=== PATIENT | female | born 1980 | race Caucasian/White ===

== ENCOUNTER 2017-02-03 00:08 | Emergency (ER) | payer MEDICAID, OTHER ==
[2017-02-03 00:08] VITALS: BMI 46.5
[2017-02-03 00:14] VITALS: BP 134/86; PULSE 85; RESP 18; TEMP 97.9; O2SAT 100
--- NOTE | 2017-02-03 01:36 | C.PDOC ---
History Of Present Illness Patient is a 36 year old female who presented to the ER with a complaint of right foot/ankle pain. Patient states she slipped on ice and twisted her ankle. Patient notes that she was able to walk after the injury, go to work, and complete her shift before visiting the ER. Patient took an Advil hours prior to arrival. Denies any other trauma, injury, headache, or dizziness. Time Seen by Provider: 02/03/17 00:33 Chief Complaint (Nursing): Lower Extremity Problem/Injury History Per: Patient History/Exam Limitations: no limitations Onset/Duration Of Symptoms: Hrs Current Symptoms Are (Timing): Still Present Additional History Per: Patient - Ankle/Foot Description Of Injury: Twisted (Right ankle/foot) Past Medical History Reviewed: Historical Data, Nursing Documentation, Vital Signs Vital Signs: Last Vital Signs Temp 97.9 F 02/03/17 00:10 Pulse 85 02/03/17 00:10 Resp 18 02/03/17 00:10 BP 134/86 02/03/17 00:10 Pulse Ox 100 02/03/17 04:11 - Medical History PMH: Asthma, Bronchitis (chronic) Family History: States: Unknown Family Hx - Social History Hx Alcohol Use: No Hx Substance Use: No - Immunization History Hx Tetanus Toxoid Vaccination: No Hx Influenza Vaccination: Yes Hx Pneumococcal Vaccination: No Review Of Systems Musculoskeletal: Positive for: Foot Pain (Right ankle/foot) Neurological: Negative for: Weakness, Numbness Physical Exam - Physical Exam Appears: Well, Non-toxic Skin: Normal Color, Warm, Dry Head: Atraumatic, Normacephalic Eye(s): bilateral: Normal Inspection Oral Mucosa: Moist Neck: Normal, Normal ROM Cardiovascular: Rhythm Regular Respiratory: Normal Breath Sounds, No Rales, No Rhonchi, No Wheezing Gastrointestinal/Abdominal: Soft, No Tenderness, No Distention, No Guarding, No Rebound Extremity: Tenderness (midfoot plantar to aspect of foot) Neurological/Psych: Oriented x3, Normal Speech, Normal Cognition Gait: Steady ED Course And Treatment O2 Sat by Pulse Oximetry: 100 - Other Rad Right ankle x-ray X-Ray: Interpreted by Me, Viewed By Me Interpretation: No acute abnormalities Right foot x-ray X-Ray: Interpreted by Me, Viewed By Me Interpretation: No acute abnormalities. Progress Note: Ibuprofen was administered. Right ankle x-ray and right foot x- ray ordered. Disposition Counseled Patient/Family Regarding: Diagnosis, Need For Followup, Rx Given - Disposition Referrals: [facility] at [facility] [Outside] Disposition: HOME/ ROUTINE Disposition Time: :33 Condition: GOOD Additional Instructions: LEG ELEVATION' APPLY ICE MOTRIN FOR PAIN FOLLOW UP WITH PMD RETURN TO ER IF WORSE Prescriptions: Ibuprofen [Motrin] 600 mg PO Q6H #30 tab Instructions: Foot Sprain (ED) - Clinical Impression Clinical Impression: Sprain of foot, right - Scribe Statement The provider has reviewed the documentation as recorded by the Scribe Geovany Mcgrath All medical record entries made by the Reguloibrafael were at my direction and personally dictated by me. I have reviewed the chart and agree that the record accurately reflects my personal performance of the history, physical exam, medical decision making, and the department course for this patient. I have also personally directed, reviewed, and agree with the discharge instructions and disposition.
--- NOTE | 2017-02-03 08:17 | RAD ---
PROCEDURE: Right Ankle Radiographs. HISTORY: PAIN, TWISTING INJURY COMPARISON: None FINDINGS: BONES: Normal. No fracture. JOINTS: Normal. No osteoarthritis. Ankle mortise maintained. Talar dome intact SOFT TISSUES: Normal. OTHER FINDINGS: None. IMPRESSION: Normal right ankle radiographs.
--- NOTE | 2017-02-03 08:19 | RAD ---
PROCEDURE: Right Foot Radiographs. HISTORY: PAIN, TWISTING INJURY COMPARISON: None. FINDINGS: BONES: No fracture. hallux valgus and metatarsal adductus JOINTS: Normal. SOFT TISSUES: Normal. OTHER FINDINGS: None. IMPRESSION: Fracture ;hallux valgus and metatarsal adductus
== END 2017-02-03 01:49 | disposition home or self-care (01) ==
LOC: C.ER 00:08
DX: S93.601A Unspecified sprain of right foot, initial encounter (principal); W18.40XA Slipping, tripping and stumbling without falling, unspecified, initial encounter

== ENCOUNTER 2017-05-29 20:57 | Emergency (ER) | payer MEDICAID ==
[2017-05-29 20:57] VITALS: BMI 46.5
[2017-05-29 21:17] VITALS: BP 97/61; PULSE 100; RESP 18; TEMP 97.6; O2SAT 97
--- NOTE | 2017-05-29 21:23 | C.PDOC ---
History Of Present Illness A 37 y/o female, with PMHx of chronic right knee pain, presents to the ED for evaluation of right knee pain which began a few days ago. Patient notes she has been managing her chronic pain with Meloxicam and Motrin. Patient notes her pain has been worsening despite taking Motrin and now reports to the ED for further evaluation. She denies fever, chills, direct injury/trauma to the affected area, recent falls, or extremity numbness/weakness. Chief Complaint (Nursing): Lower Extremity Problem/Injury History Per: Patient History/Exam Limitations: no limitations Onset/Duration Of Symptoms: Days Current Symptoms Are (Timing): Still Present Additional History Per: Patient - Knee Description Of Injury: denies: Fell, Struck With Object, Struck Against Object, Twisted Past Medical History Reviewed: Historical Data, Nursing Documentation, Vital Signs Vital Signs: Last Vital Signs Temp 97.6 F 05/29/17 21:13 Pulse 100 H 05/29/17 21:13 Resp 18 05/29/17 21:13 BP 97/61 L 05/29/17 21:13 Pulse Ox 97 05/30/17 00:07 - Medical History PMH: Asthma, Bronchitis (chronic) Surgical History: No Surg Hx Family History: States: Unknown Family Hx - Social History Hx Alcohol Use: No Hx Substance Use: No - Immunization History Hx Tetanus Toxoid Vaccination: No Hx Influenza Vaccination: Yes Hx Pneumococcal Vaccination: No Review Of Systems Constitutional: Negative for: Fever, Chills Musculoskeletal: Positive for: Other (+right knee pain ) Neurological: Negative for: Weakness, Numbness Physical Exam - Physical Exam Appears: Non-toxic, No Acute Distress Skin: Warm, Dry, No Ecchymosis, Other (+diffuse chronic hyperpigmented lesions ) Head: Atraumatic Eye(s): bilateral: Normal Inspection Oral Mucosa: Moist Neck: Supple Extremity: Normal ROM, Tenderness (to anterior aspect of right knee on palpation ), Capillary Refill (less than 2 seconds ), No Deformity, No Swelling Pulses: Left Dorsalis Pedis: Normal, Right Dorsalis Pedis: Normal Neurological/Psych: Normal Speech, Normal Cognition Gait: Steady ED Course And Treatment O2 Sat by Pulse Oximetry: 97 (on RA) Pulse Ox Interpretation: Normal Progress Note: Patient received Toradol IM. Patient requests a prescription for Percocet. Discussed with patient that her current symptoms are possibly caused by Arthritic changes, and narcotic pain medication is not necessary. On reassessment, patient is resting comfortably, showing no signs of distress, and reports an improvement in her symptoms. Patient is ambulatory in the ED without distress and is stable for discharge. Patient is advised to follow up with her PMD within 1-2 days for further evaluation. Reassessment Condition: Improved Disposition Counseled Patient/Family Regarding: Diagnosis, Need For Followup - Disposition Referrals: Lynn Galvez DO [Doctor Osteopathy] - Disposition: HOME/ ROUTINE Disposition Time: 21:23 Condition: STABLE Additional Instructions: Continue meloxicam or motrin Use knee brace for support Follow up with PMD Return to ER if worse Instructions: Arthralgia (ED) - Clinical Impression Clinical Impression: Arthralgia of knee, right - PA / TRADE CLERK / Resident Statement / has reviewed & agrees with the documentation as recorded. - Scribe Statement The provider has reviewed the documentation as recorded by the Scribe (Angela Hitchcock) All medical record entries made by the Scribe were at my direction and personally dictated by me. I have reviewed the chart and agree that the record accurately reflects my personal performance of the history, physical exam, medical decision making, and the department course for this patient. I have also personally directed, reviewed, and agree with the discharge instructions and disposition.
== END 2017-05-29 23:27 | disposition home or self-care (01) ==
LOC: C.ER 20:57
DX: M25.561 Pain in right knee (principal)
CPT/HCPCS: 96372; 99284; J1885

== ENCOUNTER 2017-07-23 01:49 | Emergency (ER) | payer MEDICAID ==
[2017-07-23 01:49] VITALS: BMI 46.5
--- NOTE | 2017-07-23 02:14 | C.PDOC ---
History Of Present Illness 37 yo female come in for evaluation of Left wrist/forearm pain developed for past 3 weeks. Pt sts, pain is worse with twisting movement . Otherwise, pt denies known direct trauma or injury, fever, chills, CP,SOB, dyspnea, diaphoresis, palpitation, denies weakness, deformity, sensory or vascular deficits to Left arm. Time Seen by Provider: 07/23/17 01:57 Chief Complaint (Nursing): Upper Extremity Problem/Injury History Per: Patient Past Medical History Reviewed: Historical Data, Nursing Documentation, Vital Signs Vital Signs: Last Vital Signs Temp 98.5 F 07/23/17 01:58 Pulse 91 H 07/23/17 01:58 Resp 16 07/23/17 01:58 BP 137/80 07/23/17 01:58 Pulse Ox 99 07/23/17 02:13 - Medical History PMH: Asthma, Bronchitis (chronic) Other PMH: Chronic skin rpoblem Family History: States: Unknown Family Hx - Social History Hx Alcohol Use: No Hx Substance Use: No - Immunization History Hx Tetanus Toxoid Vaccination: No Hx Influenza Vaccination: Yes Hx Pneumococcal Vaccination: No Review Of Systems Except As Marked, All Systems Reviewed And Found Negative. Constitutional: Negative for: Fever, Chills ENT: Negative for: Throat Pain Musculoskeletal: Positive for: Hand Pain Skin: Negative for: Bruising Neurological: Negative for: Weakness, Numbness Physical Exam - Physical Exam Appears: Well, Non-toxic, No Acute Distress Skin: Normal Color, Warm Extremity: Normal ROM (LUE), Tenderness (mild tenderness over distal radius, no edema, no erythema, no palpable deformity. FAROM of Left upper extrimity, no neurovascular deficits.), Capillary Refill (less than 2sec to Left hand), No Deformity, No Swelling Neurological/Psych: Oriented x3, Normal Speech, Normal Motor, Normal Sensation, Normal Reflexes ED Course And Treatment O2 Sat by Pulse Oximetry: 99 Pulse Ox Interpretation: Normal - Other Rad Left wrist X-Ray: Interpreted by Me, Viewed By Me Interpretation: (-) acute fx or dilsocation Progress Note: On re-evaluation, pt aferile, hemodynamicaly stable, not in any apparent distress. LUE: exam c/w Left wrist strain. FAROM, no neurovascular deficits. Imaging review and appears without acute abnormalities. Volar splint applied to Left wrist. Pt advised. ref. to F/u with Ortho in 1-2 days for re-evaluation. Disposition Counseled Patient/Family Regarding: Studies Performed, Diagnosis, Need For Followup - Disposition Referrals: Lynn Galvez DO [Doctor Oste[facility]] - [facility] at [facility] [Outside] Disposition: HOME/ ROUTINE Disposition Time: 02:30 Condition: STABLE Additional Instructions: Splint for 1 week Ibuprofen for pain Follow up with PMD, Orthopedist in 2-3 days for re-evaluation. Return to ED if any worsening or new changes. Prescriptions: Ibuprofen [Motrin Tab] 600 mg PO Q6 #20 tab Instructions: Wrist Sprain (ED) - Clinical Impression Clinical Impression: Wrist sprain
[2017-07-23 02:48] VITALS: BP 130/81; PULSE 88; RESP 20; TEMP 98; O2SAT 98
--- NOTE | 2017-07-23 12:02 | RAD ---
PROCEDURE: Left Wrist Radiographs. HISTORY: pain COMPARISON: None. FINDINGS: BONES: Normal. No fracture. JOINTS: Normal. No dislocation. SOFT TISSUES: Normal. OTHER FINDINGS: None. IMPRESSION: Normal left wrist radiographs.
== END 2017-07-23 02:50 | disposition home or self-care (01) ==
LOC: C.ER 01:49
DX: S63.502A Unspecified sprain of left wrist, initial encounter (principal); X58.XXXA Exposure to other specified factors, initial encounter